=== PATIENT | male | born 1970 | race African-American/Black ===

== ENCOUNTER → 2019-12-05 | Outpatient (CLI) | payer OTHER ==
[2019-12-05 15:34] LABS: Calcium 8.9 mg/dL (8.4-10.2); Potassium 4.9 mmol/L (3.5-5.1)
--- NOTE | 2019-12-07 07:04 | US ---
EXAMINATION TYPE: US kidneys/renal and bladder DATE OF EXAM: 12/05/2019 COMPARISON: NONE CLINICAL HISTORY: N13.1 URETERAL STRICTURE. EXAM MEASUREMENTS: Right Kidney: 11.9 x 4.5 x 5.9 cm Left Kidney: 9.5 x 5.0 x 4.8 cm Right Kidney: No hydronephrosis or masses seen Left Kidney: No hydronephrosis or masses seen Bladder: wnl Bilateral Jets seen: No There is no evidence for hydronephrosis at this point in time. No nephrolithiasis is seen. No jaymie s are identified. The urinary bladder is anechoic. IMPRESSION: No distinct abnormality appreciated.
== END | disposition home or self-care (01) ==
LOC: RADUSWWP 13:57 → EEVIPCON 13:57
PROVIDERS: ATTEND Urology
DX: N13.1 Hydronephrosis with ureteral stricture, not elsewhere classified (principal)
CPT/HCPCS: 76770; 80048